=== PATIENT | female | born 1980 | race American Indian/Alaskan Native ===

== ENCOUNTER 2021-05-24 06:00 | Inpatient (IN) | payer BC, OTHER ==
[2021-05-18 13:08] LABS: Basophils # (Auto) 0.1 K/mm3 (0.0-0.1); Basophils % (Auto) 2.5 % (0.0-1.8); Eosinophils # (Auto) 0.2 K/mm3 (0.0-0.4); Eosinophils % (Auto) 6.5 % (0.0-4.3); Hematocrit 35.1 % (30.3-42.9); Hemoglobin 11.4 gm/dl (10.1-14.3); Lymphocytes # (Auto) 0.9 K/mm3 (1.2-5.4); Lymphocytes % (Auto) 27.9 % (13.4-35.0); Mean Corpuscular HGB Conc 33 % (30-34); Mean Corpuscular Volume 76 fl (79-97); Monocytes # (Auto) 0.5 K/mm3 (0.0-0.8); Monocytes % (Auto) 14.5 % (0.0-7.3); Platelet Count 299 K/mm3 (140-440); Red Blood Count 4.63 M/mm3 (3.65-5.03)
--- NOTE | 2021-05-18 13:32 | Anesthesia Consultation ---
Anesthesia Consult and Med Hx Date of service: 05/24/21 - Airway Anesthetic Teeth Evaluation: Crowns ROM Head & Neck: Adequate Mental/Hyoid Distance: Adequate Mallampati Class: Class I Intubation Access Assessment: Good - Pre-Operative Health Status ASA Pre-Surgery Classification: ASA2 Proposed Anesthetic Plan: General - Pulmonary Hx Respiratory Symptoms: No (+2FS) - Cardiovascular System Hx Hypertension: No (Has chronic CP and + cardiac clearance) - Central Nervous System Hx Seizures: Yes (Last was 10 mos ago) Hx Psychiatric Problems: No - Gastrointestinal Hx Gastroesophageal Reflux Disease: Yes - Hematic Hx Anemia: Yes - Other Systems Hx Alcohol Use: Yes (Occas) Hx Cancer: No
--- NOTE | 2021-05-23 22:30 | History and Physical Report ---
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 Operations: Breast Lumpectomy: (1998) benign (R) Abnormal PAP: positive Uterine Anomaly: positive fibroids Infection History HIV Risk Eval: no Hx of STD: gonorrhea Other: Chlamydia Active Medications (reviewed today): KEPPRA 1000 MG ORAL TABLET (LEVETIRACETAM) bid FERROUS SULFATE 325 (65 FE) MG ORAL TABLET (FERROUS SULFATE) 1 po qd Current Allergies (reviewed today): No known allergies Past Medical History: Reviewed and updated today: Seizures +Sjogren's SS-A and +CINTHYA Rheumatology evaluation completed no follow up needed Past Surgical History: Reviewed history from 05/16/2019 and no changes required: Breast Lumpectomy: (1998) benign (R) Family History Summary: Reviewed history Last on 01/07/2021 and no changes required:05/23/2021 Mother - Has NE female <65 - Entered On: 05/18/2021 Mother - Has Family History of Hypertension - Entered On: 05/18/2021 Mother - Has Family History of Diabetes - Entered On: 05/18/2021 Mother - Has Family History Coronary Heart Disease female < 65 - Entered On: 05/18/2021 Father - Has Family History of Hypertension - Entered On: 05/18/2021 Other Family Member - Has No Family History of Small Bowel Cancer - Entered On: 06/17/2018 Other Family Member - Has No Family History of Stomach Cancer - Entered On: 06/17/2018 Other Family Member - Has No Family History of Pancreatic Cancer - Entered On: 06/17/2018 Other Family Member - Has No Family History of Ovarvian Cancer - Entered On: 06/17/2018 Other Family Member - Has No Family History of Kidney/Urinary Tract Cancer - Entered On: 06/17/2018 Other Family Member - Has No Family History of Spontaneous DVT-PE - Entered On: 06/17/2018 Other Family Member - Has No Family History of Brain Cancer - Entered On: 06/17/2018 Other Family Member - Has No Family History of Biliary Tract Cancer - Entered On: 06/17/2018 PGM - Has Family History Breast Cancer - Great - Entered On: 06/17/2018 Father - Has Family History Colon Cancer - diagnosed age 43 - Entered On: 12/13/2017 General Comments - FH: Brother has sickle cell trait Social History: Reviewed history from 12/13/2017 and no changes required: Patient is Smoking History: Patient has never smoked. Risk Factors: Smoked Tobacco Use: Never smoker Smokeless Tobacco Use: Never Passive Smoke Exposure: no HIV High Risk Behavior: no Exercise: no Seatbelt Use: 100 % Family History Risk Factors: Family History of NE in 1 Female Relative Age < 65: yes Alcohol Use: yes Drinks per day: social Drug Use: no Physical Exam Appearance: well developed, well nourished, no acute distress Other Exams Lungs: no rales, rhonchi, or wheezes Heart: S1, S2, no murmur, rub, or gallop Genitourinary Exam Uterus: deferred for EUA Impression & Recommendations: Problem # 1: Excessive and frequent menstruation with regular cycle (ICD-626.2) (WZZ40-H94.0) Diagnosis explained to patient . Questions answered. Discussed with patient various medical and surgical therapies common for treatment: Hormonal/medical therapy,endometrial ablation or hysterectomy. She desires to proceed wiht hysterectomy. The following medications were removed from the medication list: Vitamin D (cholecalciferol) 25 Mcg (1000 Ut) Oral Capsule (Cholecalciferol) Counseling and coordination of care was >50% of the face to face time. The total face to face time for this visit was ~40 minutes. Problem # 2: Fibroids of uterus; Intramural (ICD-218.1) ([id number]-H38.1) Diagnosis explained to patient . Discussed with patient various medical, surgical and radiological therapies common for treatment including, but not limited to, myomectomy, hysterectomy and uterine artery embolization. Discussed risks and benefits of laparotomy, laparoscopy, vaginal and robotic assisted approaches for hysterectomies. Patient desires definitive treatment in the form of total abdominal hysterectomy with removal of both fallopian tubes. The risks and alternatives for this surgery were reviewed with the patient. She was informed of the risks of the surgery including, but not limited to, pain, infection, bleeding possibly heavy enough to require a blood transfusion with associated risks of infections (hepatitis and HIV) and transfusion reactions, possible damage to bowel, bladder or ureter(s) and surrounding organs. Patient understands that this surgery will make her sterile. She was informed she may r equire a supracervical procedure (leave the cervix inside the vagna) to prevent injury to surrounding organs. She desires ovarian conservation. She was informed she may require surgery later to have her ovaries removed for a benign or malignant condition. Patient understands if her ovaries are removed she will become menopausal. Questions answered. Consent reviewed and signed The patient was instructed/informed the following: The normal length of hospital stay for this procedure. Nothing to eat or drink after midnight the evening prior to surgery.. Pre-op instruction sheets given. Wound care instructions given. Problem # 3: Pelvic and perineal pain (ICD-789.00) (MSR73-V40.2) It was extensively explained to her that her pain may persist, recur or change in nature due to the difficulty with determining the exact etiology(ies) of chronic pelvic pain or development of adhesions. She declined other treatment options at this time. Medications Added to Medication List This Visit: 1) Keppra 1000 Mg Oral Tablet (Levetiracetam) .... Bid 2) Ferrous Sulfate 325 (65 Fe) Mg Oral Tablet (Ferrous sulfate) .... 1 po qd Medications and Allergies Allergies Allergy/AdvReac Type Severity Reaction Status Date / Time No Known Allergies Allergy Unverified 05/13/21 15:17 Home Medications Medication Instructions Recorded Confirmed Last Taken Type Ferrous Sulfate [Feosol] 325 mg PO QDAY 05/13/21 05/13/21 Unknown History levETIRAcetam [Keppra TAB] 1,000 mg PO BID 05/13/21 05/13/21 Unknown History Active Meds: Active Medications Acetaminophen (Acetaminophen 500 Mg Tab) 1,000 mg PO ONCE NR Stop: 05/24/21 23:59 Celecoxib (Celecoxib 200 Mg Cap) 400 mg PO PREOP NR Stop: 05/24/21 23:59 Famotidine (Famotidine 20 Mg/2 Ml Inj) 20 mg IV QDAY PAULINA Fentanyl (Fentanyl 100 Mcg/2 Ml Inj) 100 mcg IV ONCE NR Stop: 05/24/21 23:59 Lactated Ringer's (Lactated Ringers) 1,000 mls @ 125 mls/hr IV DIRECT PAULINA Cefazolin Sodium (Ancef/Sterile Water 2 Gm/20 Ml) 2 gm in 20 mls @ 80 mls/hr IV PREOP NR; Protocol Magnesium Oxide (Magnesium Oxide 400 Mg Tab) 400 mg PO ONCE NR Stop: 05/24/21 23:59 Metoclopramide HCl (Metoclopramide 10 Mg/2 Ml Inj) 10 mg IV PREOP NR Stop: 05/24/21 23:59 Midazolam HCl (Midazolam 2 Mg/2 Ml Inj) 2 mg IV PREOP NR Stop: 05/24/21 23:59 Scopolamine (Scopolamine Transdermal Patch 72 Hr) 1 each TD PREOP NR Stop: 05/28/21 23:59 Exam Vital Signs Temp Pulse Resp BP Pulse Ox 98.1 F 66 20 156/85 98 05/18/21 11:55 05/18/21 11:55 05/18/21 11:55 05/18/21 11:55 05/18/21 11:55 Results - Labs 05/18/21 06:00 Assessment and Plan - Patient Problems (1) Excessive and frequent menstruation with regular cycle Status: Chronic (2) Intramural leiomyoma of uterus Status: Chronic (3) Pelvic and perineal pain Status: Chronic
[~2021-05-24 06:00] MED LIST: ACETAMINOPHEN 500 MG TAB PO NR; CELECOXIB 200 MG CAP PO NR; FAMOTIDINE 20 MG/2 ML INJ IV SCH; LACTATED RINGERS 1,000 ML IV SCH; MAGNESIUM OXIDE 400 MG TAB PO NR; METOCLOPRAMIDE 10 MG/2 ML INJ IV NR; SCOPOLAMINE TRANSDERMAL PATCH 72 HR TD NR; ceFAZolin/Water 2 GM/20 ML 2 GM/20 ML SYRINGE IV NR; fentaNYL 100 MCG/2 ML INJ IV NR
[2021-05-24] MEDS ORDERED: BACTERIOSTATIC SODIUM CHLORIDE 0.9% 30 ML VIAL INFILTRATI ONE (06:34)
[2021-05-24] MEDS ORDERED: HYDROmorphone 1 MG/1 ML INJ ONE (07:09)
[2021-05-24] MEDS ORDERED: propofoL 200 MG/20 ML VIAL IV ONE (07:10)
[2021-05-24] MEDS ORDERED: LIDOCAINE MPF (2%) 20 MG/1 ML VIAL 5 ML ONE (07:11)
[2021-05-24] MEDS ORDERED: ROCURONIUM 50 MG/5 ML INJ IV ONE (07:11)
[2021-05-24] MEDS ORDERED: dexAMETHasone 20 MG/5 ML VIAL ONE ×2 (07:12→08:04)
[2021-05-24] MEDS ORDERED: BUPIVACAINE-EPINEPHRINE/PF 0.25%-1:200,000 (30 ML) VIAL INFILTRATI ONE (07:12)
[2021-05-24] MEDS: MIDAZOLAM 2 MG/2 ML INJ IV NR ×2 (07:17→07:24)
[2021-05-24] MEDS ORDERED: ONDANSETRON 4 MG/2 ML INJ IV PRN ×2 (07:55→12:00)
--- NOTE | 2021-05-24 07:55 | Anesthesia Day of Surgery ---
Anesthesia Day of Surgery - Day of Surgery Patient Examined: Yes Patient H&P Reviewed: Yes Patient is NPO: Yes
[2021-05-24] MEDS ORDERED: ONDANSETRON 4 MG/2 ML INJ ONE (08:04)
[2021-05-24] MEDS ORDERED: SODIUM CHLORIDE 0.9% 100 ML ONE (08:08)
[2021-05-24] MEDS ORDERED: CITRIC ACID-SOD CITRATE 500 ML IV ONE (08:08)
[2021-05-24] MEDS ORDERED: VASOPRESSIN 20 UNIT/1 ML INJ ONE (08:08)
[2021-05-24] MEDS ORDERED: SODIUM CHLORIDE 0.9% 100 ML IVPB IV ONE (08:32)
[2021-05-24] MEDS ORDERED: VASOPRESSIN 20 UNIT/1 ML INJ IM ONE (08:32)
[2021-05-24] MEDS ORDERED: SODIUM CHLORIDE 0.9% IRR 1,500 ML BOTTLE IR ONE (08:33)
[2021-05-24] MEDS ORDERED: CITRIC ACID-SOD CITRATE SOLN 500 ML IV SOLN IV ONE (08:33)
[2021-05-24] MEDS ORDERED: LACTATED RINGERS 1,000 ML ONE (09:23)
[2021-05-24] MEDS ORDERED: NEOSTIGMINE 10MG/10 ML INJ MDV ONE (09:47)
[2021-05-24] MEDS ORDERED: GLYCOPYRROLATE 0.4 MG/2 ML INJ ONE (09:47)
[2021-05-24] MEDS ORDERED: KETOROLAC 30 MG/1 ML INJ ONE (09:50)
[2021-05-24] MEDS: HYDROmorphone 1 MG/1 ML INJ IV PRN ×2 (10:14→10:24)
--- NOTE | 2021-05-24 10:38 | Post Operative Note ---
Date of procedure: 05/24/21 Pre-op diagnosis: VANITA/BS Findings: VANITA/BS Procedure: VANITA/BS Anesthesia: GETA Surgeon: TERRENCE Pandya) Estimated blood loss: other (150mL) Pathology: list (uterus,) Specimen disposition: to lab (cervix, both fallopian tubes) Condition: stable Disposition: PACU
--- NOTE | 2021-05-24 10:40 | Operative Report ---
Operative Report Operative Report: DATE: 05/24/2021 PREOPERATIVE DIAGNOSIS: 1. Excessive and frequent menstruation with regular cycle 2. Pelvic pain 3. Uterine fibroid 4. Seizure disorder POSTOPERATIVE DIAGNOSIS: 1. Excessive and frequent menstruation with regular cycle 2. Pelvic pain 3. Uterine fibroid 4. Seizure disorder OPERATION PERFORMED: 1. Total abdominal hysterectomy 2. Bilateral salpingectomy SURGEON: Ailyn Sol MD SPOUT LINER HELPER: Ivelisse Pandya ANESTHESIA: General. ESTIMATED BLOOD LOSS: 150 mL. COMPLICATIONS: None. URINE OUTPUT: 400 mL clear yellow urine OPERATIVE FINDINGS: Exam under anesthesia revealed the uterus to be approximately 23 weeks size, fixed. Grossly normal tubes and ovaries. PROCEDURE: The patient was taken to the OR and placed in the supine position. General anesthesia was induced. Exam under anesthesia as above. She was prepared and draped in a normal sterile fashion. A Pfannenstiel skin incision was made with a scalpel and carried down to the underlying fascia with the Bovie. This fascia was extended laterally using Gillette scissors. The superior and inferior aspects of this incision were grasped with the Nely clamps, elevated, and the rectus muscles were dissected off. Access was gained to the peritoneal cavity through a separation of the rectus muscles with blunt and sharp dissection. No bowel, bladder, ureteral or major vascular injury was noted. The pelvis showed an enlarged multiple fibroid uterus. No evidence of malignancy was noted. The uterus was then elevated through the incision and inspected. See findings as above. The O'Charbel-O'Harris self-retaining retractor was then placed in the usual fashion. No bowel was noted to be under the blades. The bowel was placed in the upper abdomen with moist laparotomy sponges and secured in place the abdominal blade. The bladder blade was then placed. With the uterus elevated, the utero-ovarian ligaments were clamped cauterized and incised bilaterally using the large Enseal device. Then round ligaments were clamped cauterized and incised bilaterally. The broad ligaments were clamped, cauterized and incised bilaterally. The vesicouterine fold was then created with both blunt and sharp dissection. The uterine vessels were carefully skeletonized bilaterally. Using the Enseal device the uterine vessels were clamped and cauterized bilaterally. The vessels were clamped cut and suture-ligated with 0 Vicryl. The cardinal ligaments were then clamped cut and suture-ligated bilaterally. The bladder was further dissected off of the lower uterine segment. Then using straight Vj clamps the remainder of the cardinal ligaments were clamped cut and suture-ligated bilaterally. To ensure better visualization, the uterus and proximal cervix were amputated and the remaining cervix was grasped with a single-tooth tenaculum. The remaining cervix was elevated and the uterosacral ligaments were grasped with right angle Vj clamps. The cervix was then excised. No bowel, bladder, ureteral or major vascular injury was noted. The midline of the vagina was ligated using 0 Vicryl in [id number] fashion x2. The uterosacral ligaments were ligated using 0 Vicryl with a Temitope stitch. The pelvis was irrigated with warm normal saline. Attention was turned to the adnexa, the right tube was grasped with a [place] clamp elevated and excised using the Enseal device the usual fashion. Same procedure was performed on the left tube. Each tube was sent to pathology in separate containers. Hemostasis was noted. Again attention was turned to the vaginal cuff, no defects were noted. Hemostasis was noted. The pelvis was irrigated with warm normal saline. Jim was placed on the adnexa as well as on the vaginal cuff. The O'Charbel-O'Harris self retaining retractor was removed. The laparotomy sponges were removed and a count was performed that was correct. Again no bowel, bladder, ureteral or major vascular injury was noted. The rectus muscles were reapproximated using 0 Vicryl in a [id number] stitch x2. Once hemostasis was noted on the rectus muscles the fascia was approximated using 0 Vicryl from distal to midline. Once hemostasis was noted the subcuticular adipose tissue was reapproximated using 0 Vicryl simple running stitch. Once hemostasis is noted the incision was reapproximated using 4-0 Vicryl in a subcuticular manner and Dermabond. Patient had drainage of clear yellow urine into the Amaya catheter the end of the procedure. Patient tolerated procedure well was taken to recovery room in stable condition. Counts were correct x3
[2021-05-24] MEDS ORDERED: traMADol 50 MG TAB PO PRN (11:30)
[2021-05-24] MEDS ORDERED: METOCLOPRAMIDE 10 MG/2 ML INJ IV PRN (11:30)
[2021-05-24] MEDS ORDERED: HYDROmorphone 1 MG/1 ML INJ IV PRN ×2 (12:00)
[2021-05-24] MEDS: SODIUM CHLORIDE 0.9% 1000 ML 1,000 ML IV SCH ×2 (12:35→21:59)
[2021-05-24] MEDS: ACETAMINOPHEN 500 MG TAB PO SCH ×3 (12:53→23:31)
[2021-05-24] MEDS ORDERED: ACETAMINOPHEN 325 MG TAB PO SCH (13:00)
--- NOTE | 2021-05-24 14:24 | Post Anesthesia Evaluation ---
- Post Anesthesia Evaluation Patient Participated: Yes Airway Patent: Yes Stable Respiratory Function: Yes Nausea/Vomiting: No Temp > 96.8F: Yes Pain Manageable: Yes Adequeate Hydration: Yes Anesthesia Complications: No
[2021-05-24] MEDS: ceFAZolin/NS 1 GM/50 ML 1 GM/50 ML BAG IV SCH ×2 (14:30→21:46)
[2021-05-24] MEDS: KETOROLAC 30 MG/1 ML INJ IV SCH ×2 (15:34→23:36)
--- NOTE | 2021-05-24 17:52 | Progress Note ---
Assessment and Plan - Patient Problems (1) Status post total abdominal hysterectomy Current Visit: Yes Status: Acute Plan to address problem: Operative findings and procedure explained. Plan of care discussed, questions encouraged and answered. She voiced understanding and agrees with plan of care (2) Seizure Current Visit: Yes Status: Acute (3) Excessive and frequent menstruation with regular cycle Current Visit: No Status: Resolved (4) Intramural leiomyoma of uterus Current Visit: No Status: Resolved (5) Pelvic and perineal pain Current Visit: No Status: Resolved Subjective - Subjective Date of service: 05/24/21 Principal diagnosis: s/p VANITA/BS Interval history: Past History : 1 Elect. Ab: 1 SIGNAL PERSON History Operations: Breast Lumpectomy: (1998) benign (R) Abnormal PAP: positive Uterine Anomaly: positive fibroids Infection History HIV Risk Eval: no Hx of STD: gonorrhea Other: Chlamydia Active Medications (reviewed today): KEPPRA 1000 MG ORAL TABLET (LEVETIRACETAM) bid FERROUS SULFATE 325 (65 FE) MG ORAL TABLET (FERROUS SULFATE) 1 po qd Current Allergies (reviewed today): No known allergies Past Medical History: Reviewed and updated today: Seizures +Sjogren's SS-A and +CINTHYA Rheumatology evaluation completed no follow up needed Past Surgical History: Reviewed history from 05/16/2019 and no changes required: Breast Lumpectomy: (1998) benign (R) Family History Summary: Reviewed history Last on 01/07/2021 and no changes required:05/23/2021 Mother - Has VA female <65 - Entered On: 05/18/2021 Mother - Has Family History of Hypertension - Entered On: 05/18/2021 Mother - Has Family History of Diabetes - Entered On: 05/18/2021 Mother - Has Family History Coronary Heart Disease female < 65 - Entered On: 05/18/2021 Father - Has Family History of Hypertension - Entered On: 05/18/2021 Other Family Member - Has No Family History of Small Bowel Cancer - Entered On: 06/17/2018 Other Family Member - Has No Family History of Stomach Cancer - Entered On: 06/17/2018 Other Family Member - Has No Family History of Pancreatic Cancer - Entered On: 06/17/2018 Other Family Member - Has No Family History of Ovarvian Cancer - Entered On: 06/17/2018 Other Family Member - Has No Family History of Kidney/Urinary Tract Cancer - Entered On: 06/17/2018 Other Family Member - Has No Family History of Spontaneous DVT-PE - Entered On: 06/17/2018 Other Family Member - Has No Family History of Brain Cancer - Entered On: 06/17/2018 Other Family Member - Has No Family History of Biliary Tract Cancer - Entered On: 06/17/2018 PGM - Has Family History Breast Cancer - Great - Entered On: 06/17/2018 Father - Has Family History Colon Cancer - diagnosed age 43 - Entered On: 12/13/2017 General Comments - FH: Brother has sickle cell trait Social History: Reviewed history from 12/13/2017 and no changes required: Patient is Smoking History: Patient has never smoked. Risk Factors: Smoked Tobacco Use: Never smoker Smokeless Tobacco Use: Never Passive Smoke Exposure: no HIV High Risk Behavior: no Exercise: no Seatbelt Use: 100 % Family History Risk Factors: Family History of VA in 1 Female Relative Age < 65: yes Alcohol Use: yes Drinks per day: social Drug Use: no Physical Exam Appearance: well developed, well nourished, no acute distress Other Exams Lungs: no rales, rhonchi, or wheezes Heart: S1, S2, no murmur, rub, or gallop Genitourinary Exam Uterus: deferred for EUA Impression & Recommendations: Problem # 1: Excessive and frequent menstruation with regular cycle (ICD-626.2) (KKD65-F81.0) Diagnosis explained to patient . Questions answered. Discussed with patient various medical and surgical therapies common for treatment: Hormonal/medical therapy,endometrial ablation or hysterectomy. She desires to proceed wiht hyst erectomy. The following medications were removed from the medication list: Vitamin D (cholecalciferol) 25 Mcg (1000 Ut) Oral Capsule (Cholecalciferol) Counseling and coordination of care was >50% of the face to face time. The total face to face time for this visit was ~40 minutes. Problem # 2: Fibroids of uterus; Intramural (ICD-218.1) ([id number]) Diagnosis explained to patient . Discussed with patient various medical, surgical and radiological therapies common for treatment including, but not limited to, myomectomy, hysterectomy and uterine artery embolization. Discussed risks and benefits of laparotomy, laparoscopy, vaginal and robotic assisted approaches for hysterectomies. Patient desires definitive treatment in the form of total abdominal hysterectomy with removal of both fallopian tubes. The risks and alternatives for this surgery were reviewed with the patient. She was informed of the risks of the surgery including, but not limited to, pain, infection, bleeding possibly heavy enough to require a blood transfusion with associated risks of infections (hepatitis and HIV) and transfusion reactions, possible damage to bowel, bladder or ureter(s) and surrounding organs. Patient understands that this surgery will make her sterile. She was informed she may require a supracervical procedure (leave the cervix inside the vagna) to prevent injury to surrounding organs. She desires ovarian conservation. She was informed she may require surgery later to have her ovaries removed for a benign or malignant condition. Patient understands if her ovaries are removed she will become menopausal. Questions answered. Consent reviewed and signed The patient was instructed/informed the following: The normal length of hospital stay for this procedure. Nothing to eat or drink after midnight the evening prior to surgery.. Pre-op instruction sheets given. Wound care instructions given. Problem # 3: Pelvic and perineal pain (ICD-789.00) (SPB19-J41.2) It was extensively explained to her that her pain may persist, recur or change in nature due to the difficulty with determining the exact etiology(ies) of chronic pelvic pain or development of adhesions. She declined other treatment options at this time. Medications Added to Medication List This Visit: 1) Keppra 1000 Mg Oral Tablet (Levetiracetam) .... Bid 2) Ferrous Sulfate 325 (65 Fe) Mg Oral Tablet (Ferrous sulfate) .... 1 po qd Patient reports: pain well controlled Objective - Vital Signs Latest vital signs: Vital Signs Temp Pulse Resp BP BP Pulse Ox 05/24/21 16:06 97.6 F 67 22 145/95 100 05/24/21 11:05 98.1 F 73 16 124/77 97 05/24/21 10:45 66 16 102/59 100 05/24/21 10:30 97.2 F L 63 16 103/61 100 05/24/21 10:15 65 16 108/66 100 05/24/21 10:10 73 16 110/65 100 05/24/21 10:03 97 F L 72 16 123/72 99 05/24/21 07:37 80 15 115/64 100 05/24/21 07:32 78 17 140/79 99 05/24/21 07:27 86 13 124/90 95 05/24/21 07:22 67 14 123/82 100 05/24/21 07:18 79 22 152/93 100 05/24/21 06:30 99.1 F 68 18 134/85 100 Intake and Output 05/24/21 05/24/21 05/24/21 06:59 14:59 22:59 Intake Total 300 200 120 Output Total 530 Balance 300 -330 120 Intake: IV 300 200 Intake, Free Water 120 Output: Urine 530 Other: Voiding Method Toilet Indwelling Catheter - Exam Abdomen: Present: soft
[2021-05-24] MEDS: levETIRAcetam 500 MG TAB PO SCH (21:43)
[2021-05-24] MEDS ORDERED: NON-FORMULARY EACH (Levetiracetam [Keppra Tab] 1,000 MG Tablet) PO SCH (22:00)
[2021-05-25] MEDS: ACETAMINOPHEN 500 MG TAB PO SCH ×3 (05:50→17:49)
[2021-05-25] MEDS: SODIUM CHLORIDE 0.9% 1000 ML 1,000 ML IV SCH (05:50)
[2021-05-25] MEDS: KETOROLAC 30 MG/1 ML INJ IV SCH ×2 (05:53→10:43)
[2021-05-25 06:10] LABS: Hematocrit 33.8 % (30.3-42.9); Hemoglobin 10.8 gm/dl (10.1-14.3)
[2021-05-25] MEDS ORDERED: METOCLOPRAMIDE 10 MG TAB PO PRN (10:30)
[2021-05-25] MEDS: levETIRAcetam 500 MG TAB PO SCH ×2 (10:43→21:46)
[2021-05-25] MEDS ORDERED: ACETAMINOPHEN 500 MG TAB PO PRN (11:30)
[2021-05-25] MEDS ORDERED: IBUPROFEN 800 MG TAB PO PRN (12:00)
[2021-05-25] MEDS ORDERED: ONDANSETRON 4 MG ODT TAB PO PRN (12:00)
[2021-05-25] MEDS ORDERED: oxyCODONE /ACETAMINOPHEN 5-325MG TAB PO PRN (12:00)
[2021-05-25] MEDS: PANTOPRAZOLE 40 MG INJ IV SCH (12:25)
--- NOTE | 2021-05-25 13:29 | Progress Note ---
Assessment and Plan POD#1 s/p VANITA/BS Ding well, IS usages and ambulation encouraged. Importance emphasized Questions encouraged and answered. She agrees with POC Poss d/c home tomorrow - Patient Problems (1) Status post total abdominal hysterectomy Current Visit: Yes Status: Acute (2) Seizure Current Visit: Yes Status: Acute (3) Excessive and frequent menstruation with regular cycle Current Visit: No Status: Resolved (4) Intramural leiomyoma of uterus Current Visit: No Status: Resolved (5) Pelvic and perineal pain Current Visit: No Status: Resolved Subjective - Subjective Date of service: 05/25/21 Principal diagnosis: POD#1 s/p VANITA/BS Interval history: Past History : 1 Elect. Ab: 1 [employer]INT [employer]ER History Operations: Breast Lumpectomy: (1998) benign (R) Abnormal PAP: positive Uterine Anomaly: positive fibroids Infection History HIV Risk Eval: no Hx of STD: gonorrhea Other: Chlamydia Active Medications (reviewed today): KEPPRA 1000 MG ORAL TABLET (LEVETIRACETAM) bid FERROUS SULFATE 325 (65 FE) MG ORAL TABLET (FERROUS SULFATE) 1 po qd Current Allergies (reviewed today): No known allergies Past Medical History: Reviewed and updated today: Seizures +Sjogren's SS-A and +CINTHYA Rheumatology evaluation completed no follow up needed Past Surgical History: Reviewed history from 05/16/2019 and no changes required: Breast Lumpectomy: (1998) benign (R) Family History Summary: Reviewed history Last on 01/07/2021 and no changes required:05/23/2021 Mother - Has ID female <65 - Entered On: 05/18/2021 Mother - Has Family History of Hypertension - Entered On: 05/18/2021 Mother - Has Family History of Diabetes - Entered On: 05/18/2021 Mother - Has Family History Coronary Heart Disease female < 65 - Entered On: 05/18/2021 Father - Has Family History of Hypertension - Entered On: 05/18/2021 Other Family Member - Has No Family History of Small Bowel Cancer - Entered On: 06/17/2018 Other Family Member - Has No Family History of Stomach Cancer - Entered On: 06/17/2018 Other Family Member - Has No Family History of Pancreatic Cancer - Entered On: 06/17/2018 Other Family Member - Has No Family History of Ovarvian Cancer - Entered On: 06/17/2018 Other Family Member - Has No Family History of Kidney/Urinary Tract Cancer - E ntered On: 06/17/2018 Other Family Member - Has No Family History of Spontaneous DVT-PE - Entered On: 06/17/2018 Other Family Member - Has No Family History of Brain Cancer - Entered On: 06/17/2018 Other Family Member - Has No Family History of Biliary Tract Cancer - Entered On: 06/17/2018 PGM - Has Family History Breast Cancer - Great - Entered On: 06/17/2018 Father - Has Family History Colon Cancer - diagnosed age 43 - Entered On: 12/13/2017 General Comments - FH: Brother has sickle cell trait Social History: Reviewed history from 12/13/2017 and no changes required: Patient is Smoking History: Patient has never smoked. Risk Factors: Smoked Tobacco Use: Never smoker Smokeless Tobacco Use: Never Passive Smoke Exposure: no HIV High Risk Behavior: no Exercise: no Seatbelt Use: 100 % Family History Risk Factors: Family History of ID in 1 Female Relative Age < 65: yes Alcohol Use: yes Drinks per day: social Drug Use: no Physical Exam Appearance: well developed, well nourished, no acute distress Other Exams Lungs: no rales, rhonchi, or wheezes Heart: S1, S2, no murmur, rub, or gallop Genitourinary Exam Uterus: deferred for EUA Impression & Recommendations: Problem # 1: Excessive and frequent menstruation with regular cycle (ICD-626.2) (XMZ36-Z18.0) Diagnosis explained to patient . Questions answered. Discussed with patient various medical and surgical therapies common for treatment: Hormonal/medical therapy,endometrial ablation or hysterectomy. She desires to proceed wiht hysterectomy. The following medications were removed from the medication list: Vitamin D (cholecalciferol) 25 Mcg (1000 Ut) Oral Capsule (Cholecalciferol) Counseling and coordination of care was >50% of the face to face time. The total face to face time for this visit was ~40 minutes. Problem # 2: Fibroids of uterus; Intramural (ICD-218.1) (PZE75-P61.1) Diagnosis explained to patient . Discussed with patient various medical, surg ical and radiological therapies common for treatment including, but not limited to, myomectomy, hysterectomy and uterine artery embolization. Discussed risks and benefits of laparotomy, laparoscopy, vaginal and robotic assisted approaches for hysterectomies. Patient desires definitive treatment in the form of total abdominal hysterectomy with removal of both fallopian tubes. The risks and alternatives for this surgery were reviewed with the patient. She was informed of the risks of the surgery including, but not limited to, pain, infection, bleeding possibly heavy enough to require a blood transfusion with associated risks of infections (hepatitis and HIV) and transfusion reactions, possible damage to bowel, bladder or ureter(s) and surrounding organs. Patient understands that this surgery will make her sterile. She was informed she may require a supracervical procedure (leave the cervix inside the vagna) to prevent injury to surrounding organs. She desires ovarian conservation. She was informed she may require surgery later to have her ovaries removed for a benign or malignant condition. Patient understands if her ovaries are removed she will become menopausal. Questions answered. Consent reviewed and signed The patient was instructed/informed the following: The normal length of hospital stay for this procedure. Nothing to eat or drink after midnight the evening prior to surgery.. Pre-op instruction sheets given. Wound care instructions given. Problem # 3: Pelvic and perineal pain (ICD-789.00) (ENN19-Q13.2) It was extensively explained to her that her pain may persist, recur or change in nature due to the difficulty with determining the exact etiology(ies) of chronic pelvic pain or development of adhesions. She declined other treatment options at this time. Medications Added to Medication List This Visit: 1) Keppra 1000 Mg Oral Tablet (Levetiracetam) .... Bid 2) Ferrous Sulfate 325 (65 Fe) Mg Oral Tablet (Ferrous sulfate) .... 1 po qd Patient reports: appetite normal, pain well controlled, flatus Objective - Vital Signs Latest vital signs: Vital Signs Temp Pulse Resp BP BP Pulse Ox 05/25/21 12:00 97.8 F 64 18 134/71 05/25/21 09:20 98.4 F 64 18 121/70 05/25/21 05:53 20 05/25/21 05:50 05/25/21 05:00 98.6 F 74 18 118/79 05/25/21 00:36 98.3 F 65 18 120/66 99 05/24/21 23:36 05/24/21 19:59 98.0 F 61 18 143/76 100 05/24/21 16:06 97.6 F 67 22 145/95 100 Intake and Output 05/24/21 05/25/21 05/25/21 22:59 06:59 14:59 Intake Total 1170 1221.25 440 Output Total 1600 2500 300 Balance -430 -1278.75 140 Intake: IV 1050 981.25 ANCEF/NS 1 GM/50 ML 1 gm 50 In 50 ml @ 100 mls/hr IV Q8H PAULINA Rx#:[id number] NaCl 0.9% 1000 ml 1,000 1000 981.25 ml @ 125 mls/hr IV DIRECT PAULINA Rx#:[id number] Oral 440 Intake, Free Water 120 240 Output: Urine 1600 2500 300 Indwelling Catheter 1600 2500 Void 300 Other: Total, Intake Amount 120 Total, Output Amount 1600 500 300 Voiding Method Toilet # Voids Void 1 - Exam Breasts: Present: deferred Cardiovascular: Present: Regular rate Lungs: Present: Clear to auscultation, Normal air movement Abdomen: Present: normal appearance, soft, normal bowel sounds. Absent: distention, guarding Extremities: Present: normal. Absent: tenderness, edema Incision: Present: normal, dry, intact
[2021-05-26] MEDS: ACETAMINOPHEN 500 MG TAB PO SCH (07:14)
[2021-05-26 08:54] VITALS: BP 135/82
[2021-05-26] MEDS: levETIRAcetam 500 MG TAB PO SCH (09:34)
[2021-05-26] MEDS: PANTOPRAZOLE 40 MG INJ IV SCH (09:35)
--- NOTE | 2021-05-26 09:51 | Discharge Summary ---
Providers - Providers Date of Admission: 05/24/21 06:00 Date of discharge: 05/26/21 Attending physician: TERRENCE RIVERS Primary care physician: JOHNNIE HUYNH Hospitalization Condition: Good Procedures: VANITA/BS Hospital course: Normal Disposition: DC-01 TO HOME OR SELFCARE Final Discharge Diagnosis (Prints w/discharge instructions): VANITA/BS - Discharge Diagnoses (1) Status post total abdominal hysterectomy Status: Acute (2) Seizure Status: Chronic (3) Excessive and frequent menstruation with regular cycle Status: Resolved (4) Intramural leiomyoma of uterus Status: Resolved (5) Pelvic and perineal pain Status: Resolved Core Measure Documentation - Palliative Care Palliative Care/ Comfort Measures: Not Applicable - Core Measures Any of the following diagnoses?: none Exam - Constitutional Vitals: Temp Pulse Resp BP Pulse Ox 97.4 F L 65 20 135/82 100 05/26/21 08:17 05/26/21 08:17 05/26/21 08:17 05/26/21 08:17 05/26/21 08:17 Plan Activity: other (No sex. No driving. Ambulate approximately 1 mile on your property a day. Use your incentive spirometer every hour while awake. Void frequently.) Weight Bearing Status: Full Weight Bearing Diet: regular (Eat small meals frequently. Drink approximately 80 ounces of water a day. Avoid spicy, high salt, high fat foods.) Wound: open to air, keep clean and dry Special Instructions: no heavy lifting (Greater than 15 pounds) Follow up with: JOHNNIE HUYNH FNP-C [Primary Care Provider] - 7 Days TERRENCE RIVERS MD [Staff Physician] - (As scheduled) Prescriptions: Ibuprofen [Motrin 800 MG tab] 800 mg PO Q8H PRN #30 tablet PRN Reason: Pain, Moderate (4-6) oxyCODONE /ACETAMINOPHEN [Percocet 5/325 mg] 1 - 2 tab PO Q6H PRN #14 tablet PRN Reason: Pain, Severe (7-10)
== END 2021-05-26 11:40 | disposition home or self-care (01) | DRG 743 ==
LOC: 3A 06:00 → OB 10:42
PROVIDERS: ADMIT Obstetrics & Gynecology; ATTEND Obstetrics & Gynecology
PROC: 0UT90ZZ Resection of Uterus, Open Approach (ICD-10-PCS; principal; 2021-05-24)
PROC: 0UT70ZZ Resection of Bilateral Fallopian Tubes, Open Approach (ICD-10-PCS; 2021-05-24)
PROC: 3E0T3BZ Introduction of Anesthetic Agent into Peripheral Nerves and Plexi, Percutaneous Approach (ICD-10-PCS; 2021-05-24)
DX: D25.1 Intramural leiomyoma of uterus (principal); K21.9 Gastro-esophageal reflux disease without esophagitis; D64.9 Anemia, unspecified; Z20.822 Contact with and (suspected) exposure to COVID-19; N92.0 Excessive and frequent menstruation with regular cycle; G40.909 Epilepsy, unspecified, not intractable, without status epilepticus
CPT/HCPCS: 36415; 64450; 81025; 85014; 85018; 85025; 86850; 86900; 86901; 88302; 88307; G0378; C9113; J0690; J1100; J1170; J1885; J2250; J2405; J2704; J2710; J2765; J3010; J7030; J7120; U0003